=== PATIENT | female | born 1960 | race African-American/Black ===

== ENCOUNTER → 2017-09-22 | Outpatient (CLI) | payer MEDICARE | LOC: RAD 10:40 | PROVIDERS: ATTEND Internal Medicine Hematology & Oncology | DX: Z53.8 Procedure and treatment not carried out for other reasons (principal) ==

== ENCOUNTER 2017-10-01 15:19 | Emergency (ER) | payer MEDICARE ==
[2017-10-01] MEDS ORDERED: KETOROLAC TROMETHAMINE 60 MG/2 ML SDV IM ONE (16:13)
[2017-10-01] MEDS ORDERED: ASPIRIN 81 MG TABLET, CHEWABLE PO ONE (16:16)
--- NOTE | 2017-10-01 16:25 | ER Document Report ---
ED Medical Screen (RME) - General Chief Complaint: Dizziness Stated Complaint: DIZZINESS Time Seen by Provider: 10/01/17 16:06 Mode of Arrival: Ambulatory Information source: Patient Notes: I have greeted and performed a rapid initial assessment of this patient. A comprehensive ED assessment and evaluation of the patient, analysis of test results and completion of the medical decision making process will be conducted by additional ED providers. 57-year-old female presents emergency department with multiple complaints. Patient states that she is having left shoulder and left knee pain. Patient states that this is chronic in nature. She takes Advil for her pain with minimal relief of symptoms. Patient denies any new trauma or injury. She denies any numbness, tingling, weakness. Patient states that she is able to ambulate despite the pain. Patient states that she is also feeling lightheaded , nauseated, and had an episode of blurred vision. The blurred vision has resolved. Patient denies any alleviating or exacerbating factors. Patient has a history of blurred vision and her Primary care physician in [place] scheduled a CT head for tomorrow. PHYSICAL EXAMINATION: GENERAL: Well-appearing, well-nourished and in no acute distress. HEAD: Atraumatic, normocephalic. EYES: Pupils equal round extraocular movements intact, conjunctiva are normal. ENT: Nares patent NECK: Normal range of motion LUNGS: No respiratory distress Musculoskeletal: Normal range of motion. L shoulder tenderness to palpation. L knee tenderness to palpation. NEUROLOGICAL: Cranial nerves are intact. Normal speech, normal gait. No neurologicial deficits. PSYCH: Normal mood, normal affect. SKIN: Warm, Dry, normal turgor, no rashes or lesions noted. TRAVEL OUTSIDE OF THE [place] IN LAST 30 DAYS: No - Related Data Allergies/Adverse Reactions: No Known Allergies Allergy (Verified 10/01/17 15:21) Past Medical History Renal/ Medical History: Denies: Hx Peritoneal Dialysis Physical Exam - Vital signs Vitals: Temp Pulse Resp BP Pulse Ox 97.5 F 88 20 142/61 H 97 10/01/17 15:25 10/01/17 15:25 10/01/17 15:25 10/01/17 15:25 10/01/17 15:25 Course - Vital Signs Vital signs: Temp Pulse Resp BP Pulse Ox 97.5 F 88 20 142/61 H 97 10/01/17 15:25 10/01/17 15:25 10/01/17 15:25 10/01/17 15:25 10/01/17 15:25 Doctor's Discharge - Discharge Referrals: ESTEBAN FERRER MD [Primary Care Provider] - Follow up as needed
--- NOTE | 2017-10-01 17:19 | RADIOLOGY REPORT (SQ) ---
EXAM DESCRIPTION: CT HEAD WITHOUT COMPLETED DATE/TIME: 10/01/2017 5:05 pm REASON FOR STUDY: blurred vision, dizzy COMPARISON: None. TECHNIQUE: Axial images acquired through the brain without intravenous contrast. Images reviewed wi th bone, brain and subdural windows. Additional sagittal and coronal reconstructions were generated. Images stored on PACS. All CT scanners at this facility use dose modulation, iterative reconstruction, and/or weight based d osing when appropriate to reduce radiation dose to as low as reasonably achievable (ALARA). [facility]: Dose Right [facility]: CareDose [facility]: Dose Right [facility]: Teradose 4D [facility]: Smart invino RADIATION DOSE: CT Rad equipment meets quality standard of care and radiation dose reduction techniq ues were employed. CTDIvol: 53.2 mGy. DLP: 911 mGy-cm. mGy. LIMITATIONS: None. FINDINGS: VENTRICLES: Normal size and contour. CEREBRUM: No hemorrhage. No midline shift. There is a focal area of relative decreased density in the right frontoparietal region superiorly which may represent an evolving area of cerebral infarctio n. Clinical correlation is recommended. No obvious mass is identified. If clinically warranted MRI may be of value for further evaluation. CEREBELLUM: No masses. No hemorrhage. No alteration of density. No evidence for acute infarction. EXTRAAXIAL SPACES: No fluid collections. No masses. ORBITS AND GLOBE: No intra- or extraconal masses. Normal contour of globe without masses. CALVARIUM: No fracture. PARANASAL SINUSES: No fluid or mucosal thickening. SOFT TISSUES: No mass or hematoma. OTHER: No other significant finding. IMPRESSION: Focal relative low density area in the right frontoparietal region superiorly as noted a seema which may represent an evolving area of cerebral infarction. Clinical correlation is recommende d. MRI may be of value for further evaluation. Other findings as noted above EVIDENCE OF ACUTE STROKE: NO. COMMENT: Quality ID # [id number]: Final reports with documentation of one or more dose reduction techniques (e.g., Automated exposure control, adjustment of the mA and/or kV according to patient size, use of iterative reconstruction technique) TECHNICAL DOCUMENTATION: JOB ID: [id number] [email or web address]- All Rights Reserved Reading location - IP/workstation name: [email or web address]
--- NOTE | 2017-10-01 17:20 | RADIOLOGY REPORT (SQ) ---
EXAM DESCRIPTION: SHOULDER LEFT 2 OR MORE VIEWS COMPLETED DATE/TIME: 10/01/2017 5:11 pm REASON FOR STUDY: L shoulder pain COMPARISON: None. NUMBER OF VIEWS: Three views. TECHNIQUE: Internal rotation, external rotation, and Y view images acquired of the left shoulder. LIMITATIONS: None. FINDINGS: MINERALIZATION: Normal. BONES: No acute fracture or dislocation. No worrisome bone lesions. JOINTS: Degenerative changes are identified at the level of the gland 0 humeral joint with sclerotic and cystic changes being identified at the level of the humeral head and glenoid. VISUALIZED LUNGS AND RIBS: No pneumothorax. No rib fracture. SOFT TISSUES: No radiopaque foreign body. OTHER: No other significant finding. IMPRESSION: No acute fracture dislocation. Degenerative changes at the level of the glenohumeral preston int as noted above. Other findings as noted above TECHNICAL DOCUMENTATION: JOB ID: [id number] [employer]- All Rights Reserved Reading location - IP/workstation name: [email or web address]
--- NOTE | 2017-10-01 17:21 | RADIOLOGY REPORT (SQ) ---
EXAM DESCRIPTION: CHEST SINGLE VIEW COMPLETED DATE/TIME: 10/01/2017 5:11 pm REASON FOR STUDY: lightheaded. Blurred vision COMPARISON: None. EXAM PARAMETERS: NUMBER OF VIEWS: One view. TECHNIQUE: Single frontal radiographic view of the chest acquired. RADIATION DOSE: NA LIMITATIONS: None. FINDINGS: LUNGS AND PLEURA: No opacities, masses or pneumothorax. No pleural effusion. MEDIASTINUM AND HILAR STRUCTURES: No masses. Contour normal. HEART AND VASCULAR STRUCTURES: Heart normal in size. Normal vasculature. BONES: No acute findings. HARDWARE: None in the chest. OTHER: No other significant finding. IMPRESSION: NO ACUTE RADIOGRAPHIC FINDING IN THE CHEST. TECHNICAL DOCUMENTATION: JOB ID: [id number] [employer]- All Rights Reserved Reading location - IP/workstation name: [email or web address]
--- NOTE | 2017-10-01 17:24 | RADIOLOGY REPORT (SQ) ---
EXAM DESCRIPTION: KNEE LEFT 4 VIEW COMPLETED DATE/TIME: 10/01/2017 5:11 pm REASON FOR STUDY: L knee pain COMPARISON: None. NUMBER OF VIEWS: Four views. TECHNIQUE: AP, lateral, and both oblique radiographic images acquired of the left knee. LIMITATIONS: None. FINDINGS: MINERALIZATION: Normal. BONES: No acute fracture or dislocation. No worrisome bone lesions. JOINT: There is decrease in the medial compartment with associated osteophytic lipping. SOFT TISSUES: Soft tissue calcification is identified projected superior to the patella which could b e within the quadriceps tendon representing a tendinosis or could be within the suprapatellar pouch r epresenting synovial osteochondromatosis. OTHER: Patellar spurring is identified. IMPRESSION: Degenerative changes without evidence for fracture TECHNICAL DOCUMENTATION: JOB ID: [id number] [employer]- All Rights Reserved Reading location - IP/workstation name: [email or web address]
[2017-10-01] MEDS ORDERED: LORAZEPAM INJ 2 MG/1 ML VIAL IV ONE (18:41)
[2017-10-01 19:07] LABS: ABSOLUTE EOSINOPHILS # (AUTO) 0.1 10^3/uL (0.0-0.6); ABSOLUTE LYMPHOCYTES (AUTO) 2.2 10^3/uL (0.5-4.7); ABSOLUTE MONOCYTES (AUTO) 0.5 10^3/uL (0.1-1.4); ABSOLUTE NEUT (AUTO) 2.9 10^3/uL (1.7-8.2); BASOPHILS % (AUTO) 0.8 % (0-2); EOSINOPHILS % (AUTO) 1.9 % (0-6); HEMATOCRIT 39.6 % (36.0-47.0); HEMOGLOBIN 13.4 g/dL (12.0-15.5); LYMPHOCYTES % (AUTO) 37.9 % (13-45); MEAN CORPUSCULAR HEMOGLOBIN 30.4 pg (27.0-33.4); MEAN CORPUSCULAR HGB CONC 33.9 g/dL (32.0-36.0); MEAN CORPUSCULAR VOLUME 90 fl (80-97); MONOCYTES % (AUTO) 8.9 % (3-13); PLATELET COUNT 222 10^3/uL (150-450); RED BLOOD COUNT 4.41 10^6/uL (3.72-5.28); RED CELL DISTRIBUTION WIDTH 14.5 % (11.5-14.0); SEGMENTED NEUTROPHILS % (AUTO) 50.5 % (42-78); TOTAL CELLS COUNTED % (AUTO) 100 %; WHITE BLOOD COUNT 5.7 10^3/uL (4.0-10.5)
[2017-10-01 19:19] LABS: ALANINE AMINOTRANSFERASE 21 U/L (9-52); ALBUMIN 3.8 g/dL (3.5-5.0); ALKALINE PHOSPHATASE 111 U/L (38-126); ANION GAP 11 (5-19); ASPARTATE AMINO TRANSFERASE 16 U/L (14-36); BILIRUBIN,DIRECT 0.3 mg/dL (0.0-0.4); BILIRUBIN,TOTAL 0.3 mg/dL (0.2-1.3); BLOOD UREA NITROGEN 18 mg/dL (7-20); CALCIUM 9.2 mg/dL (8.4-10.2); CARBON DIOXIDE 26 mmol/L (22-30); CHLORIDE 106 mmol/L (98-107); CREATINE KINASE 46 U/L (30-135); GLUCOSE 131 mg/dL (75-110); POTASSIUM 4.1 mmol/L (3.6-5.0); SODIUM 143.1 mmol/L (137-145); TOTAL PROTEIN 7.3 g/dL (6.3-8.2)
--- NOTE | 2017-10-01 19:22 | ER Document Report ---
ED General - General Chief Complaint: Dizziness Stated Complaint: DIZZINESS Time Seen by Provider: 10/01/17 16:06 Mode of Arrival: Ambulatory Notes: Patient is a 57-year-old female with a past medical history of a stroke in June status post carotid endarterectomy, anticoagulated, morbid obesity, hypertension, hyperlipidemia, diabetes who presents emergency department with multiple complaints. Patient states that she is having left shoulder and left knee pain. Patient states that this is chronic in nature. She takes Advil for her pain with minimal relief of symptoms. Patient denies any new trauma or injury. She denies any numbness, tingling, weakness. Patient states that she is able to ambulate despite the pain. Patient states that she is also feeling lightheaded, nauseated, and had an episode of blurred vision. The blurred vision has resolved. Patient states that that episode happened earlier today and she believes that occurred due to standing up too quickly. She denies any ongoing dizziness or lightheadedness. Nothing improves or worsens her symptoms. She denies history of similar symptoms in the past. She is currently off all of her medications except her anticoagulant as she is apparently visiting from out of town. TRAVEL OUTSIDE OF THE [place] IN LAST 30 DAYS: No - Related Data Allergies/Adverse Reactions: No Known Allergies Allergy (Verified 10/01/17 15:21) Past Medical History - General Information source: Patient - Social History Smoking Status: Never Smoker Frequency of alcohol use: None Drug Abuse: None Lives with: Family Family History: Reviewed & Not Pertinent Patient has suicidal ideation: No Patient has homicidal ideation: No Renal/ Medical History: Denies: Hx Peritoneal Dialysis Review of Systems - Review of Systems Notes: Constitutional: Negative for fever. HENT: Negative for sore throat. Eyes: Negative for visual changes. Cardiovascular: Negative for chest pain. Positive for an episode of lightheadedness Respiratory: Negative for shortness of breath. Gastrointestinal: Negative for abdominal pain, vomiting or diarrhea. Genitourinary: Negative for dysuria. Musculoskeletal: Positive for chronic left knee pain Skin: Negative for rash. Neurological: Negative for headaches, weakness or numbness. 10 point ROS negative except as marked above and in HPI. Physical Exam - Vital signs Vitals: Temp Pulse Resp BP Pulse Ox 97.5 F 88 20 142/61 H 97 10/01/17 15:25 10/01/17 15:25 10/01/17 15:25 10/01/17 15:25 10/01/17 15:25 Interpretation: Hypertensive Notes: PHYSICAL EXAMINATION: GENERAL: Well-appearing, well-nourished and in no acute distress. HEAD: Atraumatic, normocephalic. EYES: Pupils equal round and reactive to light, extraocular movements intact, sclera anicteric, conjunctiva are normal. ENT: nares patent, oropharynx clear without exudates. Moist mucous membranes. NECK: Normal range of motion, supple without lymphadenopathy LUNGS: Breath sounds clear to auscultation bilaterally and equal. No wheezes rales or rhonchi. HEART: Regular rate and rhythm without murmurs ABDOMEN: Soft, morbidly obese abdomen, nontender, normoactive bowel sounds. No guarding, no rebound. No masses appreciated. EXTREMITIES: Normal range of motion, no pitting or edema. No cyanosis. NEUROLOGICAL: Face symmetric. Tongue protrudes midline. Extraocular motions intact. Pupils are 2 mm and equally reactive. Normal speech. 5 out of 5 strength in both the distal and proximal upper and lower extremities bilaterally. Sensation is grossly intact throughout. Finger to nose testing normal. Pronator drift normal. PSYCH: Normal mood, normal affect. SKIN: Warm, Dry, normal turgor, no rashes or lesions noted. Course - Re-evaluation Re-evalutation: 10/01/17 19:21 Patient presents with positional lightheadedness that has been ongoing for the past 2 days. The patient is off all of her medications except her anticoagulant and this may be part of the reason as her blood pressure is noted to be elevated today. She has no focal neurologic deficits on examination. Normal cerebellar testing. CT of the head showed a possible evolving area of ischemia on her CT although patient does note that she had a stroke back in June and also had a carotid endarterectomy at that time. No cerebellar findings are noted on CT although this is poorly imaged on CT imaging. Will proceed with an MRI of the head to further clarify and if this does not show any acute findings will plan for discharge home which patient is requesting as soon as possible as she states she overall feels fine at this time point and believes that she has been exerting herself too much and has been off her medications for several days. 10/01/17 22:00 MRI does not show any acute findings. Patient has remained symptomatic. Labs otherwise unremarkable. At this time will discharge with return precautions and follow-up recommendations. Verbal discharge instructions given a the bedside and opportunity for questions given. Medication warnings reviewed. Patient is in agreement with this plan and has verbalized understanding of return precautions and the need for primary care follow-up in the next 24-72 hours. - Vital Signs Vital signs: Temp Pulse Resp BP Pulse Ox 97.6 F 72 14 141/63 H 97 10/01/17 22:41 10/01/17 22:41 10/01/17 22:41 10/01/17 22:41 10/01/17 22:41 - Laboratory Result Diagrams: 10/01/17 19:00 10/01/17 19:00 Laboratory results interpreted by me: 10/01/17 10/01/17 19:00 19:00 RDW 14.5 H Glucose 131 H - Diagnostic Test Radiology reviewed: Reports reviewed - EKG Interpretation by Me Additional EKG results interpreted by me: 10/02/17 04:26 Sinus rhythm. Rate 72. No ST elevations or depressions. QTC 421. LVH present. Discharge - Discharge Clinical Impression: Dizziness, Morbid obesity Left knee pain Qualifiers: Chronicity: acute Qualified Code(s): M25.562 - Pain in left knee Condition: Good Disposition: HOME, SELF-CARE Additional Instructions: Your MRI does not show any acute events today. Your labs are otherwise unremarkable. Take Tylenol 1000 mg every 6 hours as needed for your pain. Return to the emergency department immediately if you develop weakness, numbness , confusion, inability to walk, or any other symptoms that are worrisome to you. Unfortunately I do not have a complete medication list today so I am unable to refill your chronic home medications. Please contact your primary care doctor for refills as soon as you are possible. Referrals: ESTEBAN FERRER MD [NO LOCAL MD] - Follow up as needed
[2017-10-01 19:31] LABS: CREATINE KINASE MB 0.35 ng/mL (<4.55); TROPONIN I < 0.012 ng/mL
--- NOTE | 2017-10-01 20:43 | EKG REPORT ---
SEVERITY:- ABNORMAL ECG - SINUS RHYTHM LEFT VENTRICULAR HYPERTROPHY : Confirmed by: Tahmina Casillas MD 01-Oct-2017 20:42:34
--- NOTE | 2017-10-01 21:50 | RADIOLOGY REPORT (SQ) ---
EXAM DESCRIPTION: MRI HEAD COMBO COMPLETED DATE/TIME: 10/01/2017 9:03 pm REASON FOR STUDY: blurred vision COMPARISON: CT brain 10/01/2017 TECHNIQUE: Multiplanar imaging includes noncontrasted T1, T2, FLAIR, diffusion with ADC map and post gadolinium contrast T1 sequences. Images stored on PACS. CONTRAST TYPE AND DOSE: 20 mL Prohance. RENAL FUNCTION: GFR > 60. LIMITATIONS: None. FINDINGS: ANATOMY: No anomalies. Normal vascular flow voids. Pituitary fossa normal. CSF SPACES: Normal in size and contour. No hemorrhage. CEREBRUM: In the right frontal convexity, a 2 x 3 cm subacute infarct is present, with minimal surfac e subacute methemoglobin staining. No mass effect. No superimposed acute hemorrhage. This correlat es with the findings on CT brain 10/01/2017. Findings were discussed with Dr. Nobles, 2130 hours 10/01. Few punctate foci of bifrontal and biparietal small vessel chronic ischemic change. Cerebral hemisph eres are otherwise unremarkable. No MR evidence of acute infarct, acute intracranial hemorrhage, mas s effect, or midline shift. No abnormal contrast enhancement. POSTERIOR FOSSA: Punctate lacunar infarcts, right inferior cerebellar hemisphere. No acute hemorrhage . No edema, masses, or mass effect. Internal auditory canals, cerebellopontine angles, mastoids jc l. No enhancing lesions. No abnormal enhancement post contrast. DIFFUSION IMAGING: Right frontal subacute infarction. ORBITS: No masses. Globes normal. PARANASAL SINUSES: No fluid levels. Mucosa normal. OTHER: No other significant finding. IMPRESSION: Subacute infarct right frontal cortex and subcortical white matter with minimal surface subacute methemoglobin staining. Minimal hemispheric small vessel ischemic change. Tiny lacunar infarcts right inferior cerebellar he misphere No acute findings EVIDENCE OF ACUTE STROKE: NO. TECHNICAL DOCUMENTATION: JOB ID: [id number] [employer]- All Rights Reserved Reading location - IP/workstation name: [email or web address]
[2017-10-01] MEDS ORDERED: TRAMADOL HCL 50 MG TABLET PO ONE (22:03)
[2017-10-01 22:45] VITALS: BP 141/63
== END 2017-10-01 22:45 | disposition home or self-care (01) ==
LOC: ER 15:19
DX: R42 Dizziness and giddiness (principal); E66.01 Morbid (severe) obesity due to excess calories; Z68.43 Body mass index [BMI] 50.0-59.9, adult; I10 Essential (primary) hypertension; E78.5 Hyperlipidemia, unspecified; M25.562 Pain in left knee
CPT/HCPCS: 93005; 99285; 96374; 36415; 82553; 82550; 85025; 80053; 84484; 70553; 71045; 73564; 73030; 70450; 93010; A9576; A9270 ×2; J2060